=== PATIENT | male | born 1985 | race Hispanic/Latino ===

== ENCOUNTER 2017-09-13 22:30 | Emergency (ER) | payer SELFPAY ==
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
[2017-09-14] MEDS ORDERED: NORCO 5/325 PO ONE (02:54)
[2017-09-14 04:05] VITALS: BP 115/61
== END 2017-09-14 05:00 | disposition home or self-care (01) ==
LOC: EDSEX → ED 22:30
DX: S71.112A Laceration without foreign body, left thigh, initial encounter (principal); F17.200 Nicotine dependence, unspecified, uncomplicated; V19.9XXA Pedal cyclist (driver) (passenger) injured in unspecified traffic accident, initial encounter; Y93.89 Activity, other specified; Y92.89 Other specified places as the place of occurrence of the external cause; Y99.8 Other external cause status
CPT/HCPCS: 99282